=== PATIENT | female | born 1955 | race Caucasian/White ===

== ENCOUNTER 2017-04-11 16:27 | Emergency (ER) | payer MEDICARE, MEDICAID ==
--- NOTE | 2017-04-11 17:17 | ERNOTE ---
Medical Problem HPI - Narrative Date of Service: 04/11/17 - General Chief Complaint: General Assessment Time Seen by Provider: 04/11/17 17:05 Source: patient Exam Limitations: no limitations - Immun/Allergies/Home Medications Immunizations: IMMUNIZATION HX Immunizations Up to Date Yes History of Influenza Vaccine Yes Hx Pneumococcal Vaccination No Allergies/Adverse Reactions: Allergies codeine Adverse Reaction (Mild, Verified 04/11/17 16:33) HALLUCINATIONS IVP dye Adverse Reaction (Mild, Uncoded 04/11/17 16:33) STOMACH ACHES, HOT FLASHES Home Medications: HOME MEDICATIONS Pioglitazone HCl [Actos] 45 mg PO DAILY 02/23/13 [Last Taken 09/30/14] Ramipril [Altace] 10 mg PO DAILY 02/23/13 [Last Taken 09/30/14] Sertraline HCl [Zoloft] 150 mg PO DAILY 02/23/13 [Last Taken 09/30/14] glipiZIDE [Glucotrol] 10 mg PO BIDAC 02/23/13 [Last Taken 09/30/14] metFORMIN HCL [Metformin HCl ER] 1,000 mg PO BIDWM 02/23/13 [Last Taken 09/30/14 ] risperiDONE [Risperdal] 1 mg PO DAILY 02/23/13 [Last Taken 09/30/14] Aspirin [Aspirin Enteric Coated] 81 mg PO DAILY 11/06/14 [Last Taken Unknown] Atorvastatin Calcium [Lipitor] 40 mg PO HS 11/06/14 [Last Taken Unknown] Blood Sugar Diagnostic, Drum [Accu-Chek Compact] 1 each MC DAILY 11/06/14 [Last Taken Unknown] Loratadine [Claritin] 10 mg PO DAILY 11/06/14 [Last Taken Unknown] HYDROcodone/ACETAMINOPHEN [Rifle 5-325] 1 tab PO Q4H PRN #10 tab 06/16/16 [Last Taken Unknown] - History of Present History Narrative: Pt. comes in with c/o lightheadedness that started when she was exercising at physical therapy. Pt. is a diabetic so she thought that it might be her blood sugar so she had the PT check her BG which was 142, then they checked her pulse and BP and her BP was found to be 185/100 so she was sent here. Pt. denies any symptoms at this time and states taht the symptoms she was having went away shortly after they started. Review of Systems - Review of Systems Constitutional: Present: no symptoms reported. Absent: recent illness, fever, chills, weakness, fatigue EYE: Present: no symptoms reported ENT: Present: no symptoms reported Respiratory: Present: no symptoms reported. Absent: shortness of breath, cough Cardiology: Present: no symptoms reported. Absent: chest pain, edema Gastrointestinal/Abdominal: Present: no symptoms reported. Absent: nausea, vomiting, diarrhea, abdominal pain Genitourinary: Present: no symptoms reported. Absent: frequency, decreased urinary output Musculoskeletal: Present: no symptoms reported. Absent: back pain, joint pain Skin: Present: no symptoms reported. Absent: rash, change in color Neurological: Present: dizziness/light-headedness. Absent: headache, numbness, tingling All Other Systems: All systems neg except as marked - Patient's Past Medical History Patient History - Medical: Diabetes Type 2, Depression Patient History - Cardiac/Respiratory: COPD, Hypertension Patient History - Cancer: No Hx of Cancer Patient History - Surgical Procedures: Cholecystectomy Patient History - Other: None - Social History Living Situations: home Psych History: Hx of Depression Alcohol Use: rarely Drug Use: none - Immunizations Immunizations Up to Date: Yes Hx Pneumococcal Vaccination: No History of Influenza Vaccine: Yes Physical Exam - Physical Exam General Appearance: Present: wd/wn, alert, no apparent distress Eye Exam: Normal inspection: bilateral, PERRL: bilateral, EOMI: bilateral Ears, Nose, Throat: Present: normal ENT inspection, normal pharynx Neck: Present: normal inspection, nontender. Absent: lymphadenopathy (R), lymphadenopathy (L) Respiratory: Present: no respiratory distress, normal breath sounds, no accessory muscle use, chest nontender, lungs clear Cardiovascular/Chest: Present: regular rate, rhythm, no murmur, normal peripheral pulses Gastrointestinal/Abdominal: Present: normal bowel sounds, nontender, nondistended, soft, no organomegaly Back Exam: Present: normal inspection, normal range of motion, no CVA tenderness , no vertebral tenderness Extremity Exam: Present: normal inspection, non-tender, normal range of motion, no edema Neurological Exam: Present: alert, oriented, normal mood/affect, no motor/ sensory deficits, safety compliance specialist II-XII nml as tested, normal cerebellar test Skin Exam: Present: normal color, warm/dry. Absent: pallor, skin rash ED Progress - Date and Time Seen: Date and Time: 04/11/17 18:39 Although pt. has mild hyperkalemia I do not feel that this is the cause of symptoms nor do I feel that pt. is in immediate danger at this time but do feel that pt. potassium will come down with oral rehydration . Discussed with Dr Israel and he agrees. - Results and Orders Patient's Lab Results:: I have reviewed the patient's lab results. - Vital Signs Patient's Vital Signs:: I have reviewed the patient's vital signs. Vital Signs: Vital Signs 04/11/17 04/11/17 04/11/17 16:30 16:44 16:58 Temperature 36.0 C L Pulse Rate 85 76 70 Respiratory 14 17 16 Rate Blood Pressure 146/87 153/81 153/81 O2 Sat by Pulse 98 96 95 Oximetry - EKG EKG: NSR, unchanged from EKG read: Reviewed by me EKG Comments: Interpreted by dr israel - Progress/Reassessment Chief Complaint: General Assessment Departure - Departure Clinical Impression: Dizziness Disposition: Home self-care Condition: Good Instructions: Dizziness, [id number] Additional Instructions: Please increase fluid intake, and follow up with primary provider tomorrow to investigate into this problem further. Referrals: Gayle Larson FNP [Primary Care Provider] -
--- OUTSIDE RECORDS SUMMARY | 2017-04-11 17:22 | XMS REPORT | Continuity of Care Document ---
:1955 Author Organization [facility] ([facility]) Address [address] [place] [address] Phone [phone] Care Team Providers Name Role Phone Unavailable Primary Care Provider Unavailable Source Comments This disclosure is being made pursuant to the Care Everywhere program, applicable federal and state laws, and may not contain all informaitonavailable regarding this patient.[facility] ([facility]) Active Allergies and Adverse Reactions Not on File Current Medications Not on file Active Problems Not on file Social History Tobacco Use Types Packs/Day Years Used Date Never Assessed Plan of Care Health Maintenance Due Date Last Done Comments HCV Screening 1955 Hepatitis B Vaccine (1 of 3 - Primary Series) 1955 Tdap Vaccine 1965 Lipid Disorder Screening 1972 Td Vaccine 1972 Cervical Cancer Screening 1984 Mammogram 1994 Colonoscopy 12/30/2004 Zoster Vaccine 2014 Influenza Vaccine: Seasonal (#1) 06/28/2016 Results from Last 3 Months Not on file
[2017-04-11 17:33] LABS: Hemoglobin 13.5 gm/dL (12.5-16.0); Mean Cell Volume 91.5 fl (78-100); Mean Corpuscular Hemoglobin 30.1 pg (27-31); Mean Corpuscular Hgb Conc 32.9 g/dl (32-36); Mean Platelet Volume 10.3 fl (6.0-9.5); Platelet Count 173 K/mm3 (150-450); Red Blood Count 4.48 M/mm3 (4.2-5.4); Red Cell Distribution Width 13.2 % (11.5-14.0); White Blood Count 6.6 K/mm3 (4.0-10.5)
[2017-04-11 17:38] LABS: Total Cells Counted 100
[2017-04-11 17:43] LABS: Eosinophil 3 % (0-3); Lymphocyte 28 % (20-51); Monocyte 2 % (0-9); Neutrophil 67 % (42-75); Neutrophil # 4.4 K/mm3 (1.3-6.0)
[2017-04-11 17:44] LABS: Platelet Estimate Normal (NORMAL); RBC Morphology Normal (NORMAL)
[2017-04-11 18:00] LABS: Prothrombin Time (Patient) 10.8 Seconds (9.4-11.4)
[2017-04-11 18:01] LABS: INR 1.04 INR (0.90-1.10); Partial Thrombolplastin Time 28.2 Seconds (24-32)
[2017-04-11 18:34] LABS: ALT 20 U/L (19-67); AST 13 U/L (0-48); Albumin * 3.7 gm/dl (3.4-5.0); Alkaline Phosphatase * 169 U/L (50-170); Anion Gap 15.7 mmol/L (6.8-13.8); BUN/Creatinine Ratio 20.2 (9.0-21.6); Bilirubin, Total 0.3 mg/dL (0.0-1.1); Blood Urea Nitrogen 20 mg/dL (3-23); Ca. Corrected For Albumin 9.4 mg/dL (8.4-10.2); Calcium * 9.5 mg/dL (7.9-10.9); Carbon Dioxide 24.2 mmol/L (24-32.6); Chloride 105 mmol/L (97-106); Glucose * 123 mg/dL (70-110); Potassium 4.9 mmol/L (3.4-4.6); Sodium 140 mmol/L (132-142); Total Protein 6.8 gm/dL (6.2-8.2); Troponin I Less than 0.017 ng/ml (0.00-0.10)
[2017-04-11 18:47] VITALS: BP 161/70
== END 2017-04-11 18:54 | disposition home or self-care (01) ==
LOC: ER 16:27
DX: R42 Dizziness and giddiness (principal); E11.9 Type 2 diabetes mellitus without complications; J44.9 Chronic obstructive pulmonary disease, unspecified; I10 Essential (primary) hypertension